=== PATIENT | female | born 2000 | race Caucasian/White ===

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

== ENCOUNTER 2018-01-08 21:44 | Emergency (ER) | payer BC ==
[~2018-01-08] VITALS: Ht 162.6 cm; Wt 50.2 kg
[~2018-01-08 21:44] MED LIST changes: +BENADRYL25 MG PO; +PREDNISONE5 M1 PO
[2018-01-08 22:40] LABS: HEMATOCRIT 37.3 % (36.0-46.0); HEMOGLOBIN 12.5 G/DL (11.9-15.5); MCH 30.9 PG (29.0-34.0); MCHC 33.5 G/DL (30.0-36.0); MCV 92.3 FL (83-99); PLATELET COUNT 236 K/uL (156-360); RBC DIS.WIDTH-CV 12.6 % (11.8-14.6); RBC DIS.WIDTH-SD 43.2 % (39-53); RED BLOOD COUNT 4.04 M/uL (3.80-5.20); WHITE BLOOD COUNT 7.4 K/uL (4.1-10.2)
[2018-01-08 22:58] LABS: CHLORIDE 109 mEq/L (99-109); POTASSIUM 3.8 mEq/L (3.7-5.4); SODIUM 141 mEq/L (136-147)
[2018-01-08 23:00] LABS: GLUCOSE 84 mg/dL (70-99)
[2018-01-08 23:03] LABS: SERUM ETHYL ALCOHOL < 10 mg/dL
[2018-01-08 23:04] LABS: CREATININE 0.9 mg/dL (0.6-1.3); GFR ESTIMATE (CALCULATED) > 59 mL/min/
[2018-01-08 23:05] LABS: UREA NITROGEN (BUN) 11 mg/dL (9-23)
[2018-01-08 23:12] LABS: QUANTITATIVE HCG < 4.0 MIU/ML
[2018-01-08 23:18] LABS: AMPHETAMINE NEGATIVE (500 ng/mL); BARBITURATES NEGATIVE (200 ng/mL); BENZODIAZEPINES NEGATIVE (150 ng/mL); BUPRENORPHINE NEGATIVE (10 ng/mL); COCAINE NEGATIVE (150 ng/mL); METHADONE NEGATIVE (200 ng/mL); METHAMPHETAMINE NEGATIVE (500 ng/mL); OPIATES (MORPHINE) NEGATIVE (100 ng/mL); OXYCODONE NEGATIVE (100 ng/mL); PHENCYCLIDINE NEGATIVE (25 ng/mL); PROPOXYPHENE NEGATIVE (300 ng/mL); THC CANNABINOIDS NEGATIVE (50 ng/mL); TRICYCLIC ANTIDEPRESSANTS NEGATIVE (300 ng/mL)
[2018-01-09 01:24] VITALS: BP 124/88
[2018-01-09] MEDS ORDERED: KEPPRA500 MG PO (16:50)
== END 2018-01-09 01:25 | disposition home or self-care (01) ==
LOC: EME → EDBD 21:44 → EME 21:44
PROVIDERS: Emergency Medicine
DX: R56.9 Unspecified convulsions (principal); I49.8 Other specified cardiac arrhythmias; R94.31 Abnormal electrocardiogram [ECG] [EKG]; Z88.8 Allergy status to other drugs, medicaments and biological substances; Z91.013 Allergy to seafood
CPT/HCPCS: 70450; 80048; 84702; 85027; 93005; 99281; 99284; G0480; J1200; J2060; J2405; J7030

== ENCOUNTER 2018-01-09 13:02 | Emergency (ER) | payer BC ==
[~2018-01-09] VITALS: Ht 162.6 cm; Wt 54.1 kg
[2018-01-09 15:29] LABS: HEMATOCRIT 38.3 % (36.0-46.0); HEMOGLOBIN 12.8 G/DL (11.9-15.5); MCH 31.3 PG (29.0-34.0); MCHC 33.4 G/DL (30.0-36.0); MCV 93.6 FL (83-99); PLATELET COUNT 204 K/uL (156-360); RBC DIS.WIDTH-CV 12.6 % (11.8-14.6); RBC DIS.WIDTH-SD 43.6 % (39-53); RED BLOOD COUNT 4.09 M/uL (3.80-5.20); WHITE BLOOD COUNT 7.3 K/uL (4.1-10.2)
[2018-01-09 15:40] LABS: CHLORIDE 107 mEq/L (99-109); POTASSIUM 3.9 mEq/L (3.7-5.4); SODIUM 138 mEq/L (136-147)
[2018-01-09 15:42] LABS: GLUCOSE 79 mg/dL (70-99)
[2018-01-09 15:45] LABS: CREATININE 0.8 mg/dL (0.6-1.3); GFR ESTIMATE (CALCULATED) > 59 mL/min/
[2018-01-09 15:46] LABS: UREA NITROGEN (BUN) 6 mg/dL (9-23)
[2018-01-09] MEDS ORDERED: KEPPRA500 MG PO (16:50)
[2018-01-09 17:43] VITALS: BP 124/61
== END 2018-01-09 17:44 | disposition home or self-care (01) ==
LOC: EME 13:02
PROVIDERS: Emergency Medicine Emergency Medical Services
DX: R56.9 Unspecified convulsions (principal); R41.82 Altered mental status, unspecified; F32.9 Major depressive disorder, single episode, unspecified; R51 Headache; R53.83 Other fatigue
CPT/HCPCS: 80048; 85027; 95819; 99281; 99284; J0780